=== PATIENT | female | born 1965 | race African-American/Black ===

== ENCOUNTER 2019-11-21 08:11 | Emergency (ER) | payer OTHER, SELFPAY ==
[2019-11-21] MEDS ORDERED: Ketorolac Tromethamine 60 MG/2 ML VIAL ONE (10:00)
== END 2019-11-21 10:24 | disposition home or self-care (01) ==
LOC: ERS 08:11
DX: G89.29 Other chronic pain (principal); M25.551 Pain in right hip; M25.552 Pain in left hip
CPT/HCPCS: 96372; 99283; J1885